=== PATIENT | female | born 1950 | race Caucasian/White ===

== ENCOUNTER 2018-10-29 20:52 | Emergency (ER) | payer MEDICARE, SELFPAY ==
[2018-10-29 20:54] VITALS: BP 160/97; PULSE 82; RESP 18; TEMP 36.1; O2SAT 97; BMI 39.4
[2018-10-29 21:39] LABS: Absolute Lymphocyte Count 0.62 X10^3/uL (0.83-4.51); Absolute Neutrophil Count 5.3 X10^3/uL (2.0-7.7); Basophil# 0.02 X10^3/uL; Basophil% 0.3 % (0-1); Eosinophil# 0.04 X10^3/uL; Eosinophils% 0.6 % (0-5); Hematocrit 40.7 % (37-47); Hemoglobin 13.4 g/dL (12.0-15.0); Lymphocyte # 0.62 X10^3/ul (4.0); Lymphocyte % 9.8 % (19-41); Mean Corp Hgb Conc 32.9 g/dL (32-36); Mean Corpuscular Hgb 29.2 pg (27.0-32.0); Mean Corpuscular Volume 88.7 fL (81-99); Mean Platelet Vol. 10.9 fl (6.2-12.0); Monocyte# 0.32 X10^3/uL; Monocyte% 5.1 % (0-10); NRBC Flagged by Analyzer 0 % (0-5); Platelet Count 189 K/mm3 (150-450); RBC Distribution Width CV 12.2 % (11.6-14.6); RBC Distribution Width SD 39.6 fl (35.1-43.9); Red Blood Count 4.59 M/mm3 (4.2-5.4); White Blood Count 6.3 K/mm3 (4.4-11.0)
[2018-10-29 21:50] LABS: Anion Gap 7 (5-15); BUN 12 mg/dL (7-18); BUN/Creat Ratio 13.6 RATIO (10-20); Calcium,Total 9.1 mg/dL (8.5-10.1); Chloride 109 mmol/L (98-107); Creatinine, Serum 0.88 mg/dL (0.55-1.02); EST Glomerular Filtration Rate 67 mL/min (>60); Est Glom Filt Rate - Afr Amer 81 mL/min (>60); Estimated Creatinine Clearance 51.37 ml/min; Glucose 117 mg/dL (74-106); Potassium 3.6 mmol/L (3.5-5.1); Sodium Level 140 mmol/L (136-145)
--- NOTE | 2018-10-29 22:16 | ED.DCSUM_ITS ---
- ER Visit Summary Date of Service: 10/29/18 Chief Complaint: Body stiffness History of Present Illness: The patient is a 68 F who presents with body stiffness. She states that this is been ongoing for 2 weeks. At times she has shaking all over, dry mouth and she feels like she cannot relax. The symptoms have started ever since she has not been taking fluvoxamine. She ran out about a month ago. She try to get into her doctor to get a refill but she has not been able to get an appointment. She has had similar symptoms to this in the past when she tried to stop herself from taking that medication. She denies any fevers or any other recent illnesses. Physical Examination: Vital signs reviewed. HEENT exam unremarkable. There is no nuchal rigidity. Heart is regular rate and rhythm without murmurs. Lungs are clear to auscultation. Abdomen is soft and nontender. Extremities reveal no edema. Skin exam normal. Neurologic exam normal. Test Results: Laboratory studies unremarkable except for chloride of 109, glucose 117. Urinalysis negative. Emergency Department Course and Treatment: The patient symptoms are likely due to her not having her medication for over a month. I will give her a dose of A tivan here to help with her symptoms. I will give her a medication refill of the fluvoxamine. She has an appointment in late November she will try to move this up. Treatment Plan: [] Disposition: Discharge Impression: Medication withdrawal This note was generated with [employer] dictation software. It may contain incorrect words, spelling, and punctuation that were not noted in review of the chart prior to signing ED Disposition - Plan for ED Patient: Referrals: Natanael Frank DO [Primary Care Provider] -
[2018-10-29 22:36] LABS: Bacteria 0 SEEN /hpf (None Seen); Mucous, Urine 0 SEEN /hpf (<or=2+); Red Blood Cells-Urine 0 SEEN /hpf (0-5)
[2018-10-29 22:38] LABS: Color, Urine Straw (Yellow); Glucose, Dipstick Normal (Normal); Ketone-Dipstick 5 mg/dl (Negative); Leukocyte Esterase-Dipstick 25 /ul (Negative); Nitrite-Dipstick Negative (Negative); Occult Blood-Urine Negative /ul (Negative); Protein-Dipstick Negative (Negative); Urine Bilirubin Dipstick Negative (Negative); Urine Clarity Clear (Clear); Urine Urobilinogen Normal (Normal)
[2018-10-29 22:44] LABS: Squamous Epithelial Cells - UA 0-5 SEEN /hpf (5-10); White Blood Cells 0-5 SEEN /hpf (0-5)
--- NOTE | 2018-10-29 23:00 | ED.DEP ---
ED Disposition - Plan for ED Patient: Disposition: Home or Assisted Living Instructions: Treating Anxiety Disorders with Medication Prescriptions: Fluvoxamine Maleate [Luvox] 100 mg PO QHS #60 tab Prescription Printed Referrals: Natanael Frank DO [Primary Care Provider] -
[2018-10-29] MEDS: LORazepam 1 MG Tablet PO (23:11)
[2018-10-29 23:13] VITALS: RESP 14
== END 2018-10-29 23:13 | disposition home or self-care (01) ==
PROVIDERS: Emergency Provider Emergency Medicine; Family Provider Family Medicine; PCP Family Medicine
DX: F19.939 Other psychoactive substance use, unspecified with withdrawal, unspecified (principal); F32.9 Major depressive disorder, single episode, unspecified
CPT/HCPCS: 80048; 81001; 85025; 99283

== ENCOUNTER 2018-10-31 17:53 | Emergency (ER) | payer MEDICARE, SELFPAY ==
[2018-10-31 17:54] VITALS: BP 167/106; PULSE 72; RESP 17; TEMP 35.8; O2SAT 96; BMI 36.5
--- NOTE | 2018-10-31 18:10 | ED.VIS.GEN ---
History of Present Illness Chief Complaint: Anxiety Informant: Patient, Family Onset: Days Current Severity: Mild Maximum Severity: Moderate Narrative: Patient presents with chief complaint of anxiety. She was seen in the ER 2 days ago with muscle stiffness that she attributed to being out of her Luvox. She states she is had the symptoms in the past when she was out of her medication. Work-up in the emergency room 2 days ago was unremarkable. She was given 1 mg of p.o. Ativan and symptoms improved within 30 minutes. She was given a prescription for her Luvox, but is only been able to take 1 or 2 doses. Patient states today her anxiety seemed to worsen again. She is an appointment with her PCP in 3 days. She denies headache. She denies chest pain or palpitations. Past Medical History - Allergies and Home Meds Allergies/Adverse Reactions: Allergies No Known Allergies Allergy (Verified 10/31/18 17:54) Primary Care Physician: Natanael Frank DO [Primary Care Provider] - Prior records reviewed: Yes Past Medical History: - - Reviewed Lives: Spouse/ Significant Other Smoking Status: Never smoker Review of Systems General: Denies: Chills, Fever Eyes: Denies: Visual changes - bilaterally ENT: Denies: Bilateral ear pain Cardiovascular: Denies: Chest pain, Palpitations Respiratory: Denies: Dyspnea, Cough Gastrointestinal: Denies: Abdominal pain, Nausea, Vomiting, Diarrhea Musculoskeletal: Denies: Extremity Pain Skin: Denies: Rash Neurological: Denies: Headache Psych: Reports: Anxiety Hematologic: Denies: Easy bruising, Easy bleeding Allergy: Denies: Uticaria Physical Exam Vital Signs/Narrative: Vital Signs Temp Pulse Resp BP Pulse Ox 10/31/18 17:54 96.5 F L 72 17 167/106 H 96 Inital Vital Signs reviewed: Yes General: Well nourished, Well developed Eyes: Perrl, EOMI ENT: Moist mucous membranes Neck: Supple Cardiovascular: Regular rate, Regular rhythm Respiratory: No distress, CTA bilaterally Abdomen: Soft, Nontender Extremities: Nontender Skin: Normal color, No rash Neurological: Alert, Oriented x3, Normal Strength, Normal Sensation Psychological: Normal affect Diagnostic/Tx/Re-eval - Medical Decision Making Patient was given 1 mg of Ativan p.o. After 40 minutes she states she is starting to feel improved. She be given a prescription for Ativan, 0.5 mg tabs. She will follow-up with her PCP in 3 days. She is given return instructions. ED Disposition - Plan for ED Patient: Disposition: Home or Assisted Living Diagnosis: Anxiety Instructions: Anxiety Reaction Prescriptions: Lorazepam [Ativan] 0.5 mg PO TID PRN #20 tablet PRN Reason: Anxiety Referrals: Natanael Frank DO [Primary Care Provider] - Keep [facility]iny appointment
[2018-10-31] MEDS: LORazepam 1 MG Tablet PO (18:18)
== END 2018-10-31 19:10 | disposition home or self-care (01) ==
PROVIDERS: Emergency Provider Emergency Medicine; Family Provider Family Medicine; PCP Family Medicine
DX: F41.9 Anxiety disorder, unspecified (principal); Z79.899 Other long term (current) drug therapy
CPT/HCPCS: 99283

== ENCOUNTER → 2019-08-10 15:03 | Outpatient (CLI) | payer MEDICARE, SELFPAY ==
[2019-08-10 14:47] VITALS: BMI 37.4
[2019-08-10 17:14] LABS: Anion Gap 7 (5-15); BUN 19 mg/dL (7-18); BUN/Creat Ratio 20.6 RATIO (10-20); Calcium,Total 9.3 mg/dL (8.5-10.1); Chloride 104 mmol/L (98-107); Creatinine, Serum 0.92 mg/dL (0.55-1.02); EST Glomerular Filtration Rate 64 mL/min (>60); Est Glom Filt Rate - Afr Amer 77 mL/min (>60); Glucose 93 mg/dL (74-106); Potassium 3.6 mmol/L (3.5-5.1); Sodium Level 140 mmol/L (136-145); Thyroid Stim Hormone (TSH) 1.46 uIU/mL (0.358-3.74)
== END ==
PROVIDERS: PCP Family Medicine; Referring Provider Family Medicine; Visit Provider Family Medicine
DX: I10 Essential (primary) hypertension (principal); F41.9 Anxiety disorder, unspecified
CPT/HCPCS: 36415; 80048; 84443

== ENCOUNTER → 2023-08-13 | Outpatient (CLI) | payer MEDICARE, SELFPAY ==
[2023-08-13 16:16] LABS: Anion Gap 8 (5-15); BUN 15 mg/dL (7-18); BUN/Creat Ratio 16.1 RATIO (10-20); Calcium,Total 9.3 mg/dL (8.5-10.1); Chloride 108 mmol/L (98-107); Creatinine, Serum 0.93 mg/dL (0.55-1.02); EST Glomerular Filtration Rate 62 mL/min (>60); Est Glom Filt Rate - Afr Amer 75 mL/min (>60); Glucose 92 mg/dL (74-106); Potassium 3.8 mmol/L (3.5-5.1); Sodium Level 141 mmol/L (136-145)
== END | disposition home or self-care (01) ==
LOC: BIMLAB 13:17
PROVIDERS: PCP Family Medicine; Referring Provider Family Medicine; Visit Provider Family Medicine
DX: I10 Essential (primary) hypertension (principal)
CPT/HCPCS: 36415; 80048

== ENCOUNTER → 2024-10-26 | Outpatient (CLI) | payer MEDICARE, SELFPAY ==
[2024-10-26 16:52] LABS: Hematocrit 40.0 % (37-47); Hemoglobin 13.2 g/dL (12.0-15.0); Immature Granulocytes Count 0.020 X10^3/uL (0.0-0.0); Mean Corp Hgb Conc 33.0 g/dL (32-36); Mean Corpuscular Volume 87.5 fL (81-99); Mean Platelet Vol. 11.1 fl (6.2-12.0); NRBC Flagged by Analyzer 0 % (0-5); Platelet Count 183 K/mm3 (150-450); RBC Distribution Width CV 12.8 % (11.6-14.6); RBC Distribution Width SD 40.9 fl (35.1-43.9); Red Blood Count 4.57 M/mm3 (4.2-5.4); White Blood Count 7.9 K/mm3 (4.4-11.0)
[2024-10-26 17:35] LABS: Anion Gap 13 (5-15); BUN 20 mg/dL (4-19); BUN/Creat Ratio 18.6 RATIO (10-20); Calcium,Total 9.7 mg/dL (7.6-11.0); Carbon Dioxide 22.8 mmol/L (21.0-32.0); Chloride 105 mmol/L (98-108); Glucose 97 mg/dL (70-99); Potassium 3.9 mmol/L (3.3-5.1)
--- OUTSIDE RECORDS SUMMARY | 2024-10-26 22:56 | XMS RPT_ITS | CCD ---
Author Organization [facility] CliniSyid Care Team Providers Care Logistics Associate Name Role Phone Natanael Frank Attending Unavailable Natanael Frank Referring Unavailable Natanael Frank Primary Care Unavailable Natanael Frank Attending Unavailable Natanael Frank Referring Unavailable Natanael Frank Primary Care Unavailable Natanael Frank Primary Care Unavailable Natanael Frank Attending Unavailable Natanael Frank Referring Unavailable Dr. Natnaael Frank DO Primary Care Provider Dr. Natanael Frank DO Attending Provider Dr. Natanael Frank DO Referring Provider Medications Current Medications Medication Drug Class(es) Dates Sig (Normalized) Sig (Original) fluvoxaMINE maleate 50 mg oral tablet (12 sources) Serotonin Reuptake Inhibitor Start: 11-03-2018 End: 09-20-2024 take 1 tablet by mouth at bedtime Fluvoxamine 50 mg tablet Active 50 mg PO AT BEDTIME 90 1 September 20, 2024 9:16am Start: 10-29-2018 End: 01-05-2019 take 1 tablet by mouth at bedtime Fluvoxamine 100 MG tablet Discontinued 100 mg PO AT BEDTIME October 29, 2018 12:00am January 05, 2019 4:10pm LORazepam 0.5 mg oral tablet (20 sources) Benzodiazepine Start: 10-31-2018 End: 10-26-2024 take 1 tablet by mouth three times daily as needed for anxiety Lorazepam 0.5 mg tablet Active 0.5 mg PO THREE TIMES A DAY as needed for Anxiety 30 0 October 26, 2024 2:51pm Completed/Discontinued Medications Medication Drug Class(es) Dates Sig (Normalized) Sig (Original) dicyclomine hydrochloride 20 mg oral tablet (1 source) Anticholinergic Start: 07-31-19 End: 02-07-20 take 1 tablet by mouth twice daily as needed Dicyclomine 20 mg tablet Discontinued 20 mg PO TWICE A DAY 20 July 30, 2022 12:00am February 06, 2023 4:03pm as needed for cramping hydroCHLOROthiazide 12.5 mg oral tablet (3 sources) Thiazide Diuretic Start: 01-13-20 19 End: 01-17-20 21 take 1 tablet by mouth once daily Hydrochlorothiazide 12.5 mg tablet Discontinued 12.5 mg PO DAILY 90 February 29, 2020 10:02am January 16, 2021 12:44pm lisinopril 10 mg oral tablet (2 sources) Angiotensin Converting Enzyme Inhibitor Start: 07-19-19 End: 02-07-20 23 take 1 tablet by mouth once daily Lisinopril 10 mg tablet Discontinued 10 mg PO DAILY January 17, 2022 3:16pm February 06, 2023 4:03pm Problems Problem Classification Problem Date Documented Da te Episodic/Chronic Anxiety disorders (8 sources) Mixed obsessional thoughts and acts; Translations: [Anxiety disorder, unspecified] Onset: 08-13-2023 11-03-2018 Chronic Biliary tract disease (1 source) Gallstone; Translations: [Calculus of gallbladder without cholecystitis without obstruction] 11-03-2018 Episodic Essential hypertension (3 sources) Essential (primary) hypertension; Translations: [Essential hypertension] Onset: 08-28-2023 07-30-2022 Chronic Comment on above: Blood pressure is ad equately controlled. Other gastrointestinal disorders (1 source) Irritable bowel syndrome; Translations: [Irritable bowel syndrome without diarrhea] 11-03-2018 Chronic Results Test Name Value Interpretation Reference Range [facility] Internal Medicine Office Vis daniel 03-10-2024 Internal Medicine Office Visit [facility] [address] [place] [address] [place], [place] [address] OFFICE VISIT Date of Service: 03/10/24 MR#: [id number] Acct: [id number] Name: FREDIS RUBY MICHAEL Rep #: [id number] : 1950 Provider: Dr. Natanael butts, DO Age/Sex: 73/F Location[place] [facility] Status: Signed Intake Vital Signs 08/13/23 12:53 03/10/24 15:04 Height 5 ft 9 in 5 ft 9 in Weight: 228 lb 223 lb 2 oz BMI 33.6 32.9 BP 142/78 H 120/78 Blood Pressure Location Lt brachial Lt brachial Position Sitting Sitting Respiration 16 14 Pulse 76 82 Pulse Source Monitor Monitor Temp 97.2 F L 96.5 F L Temp Source Temporal Temporal Pulse Oximetry (%) 97 96 Oxygen Delivery Method room air room air Intake Visit Reasons: 6 M FU Chief Complaint: 6 M FU Director Of Instructional Technology Required: No Accompanied by: Self Is patient in pain?: No Allergies No Known Allergies Allergy (Verified 03/10/24 15:00) Medications ???Medication ???Instructions ???Recorded ???Confirmed ???Type lorazepam 0.5 mg tablet 0.5 mg PO TID PRN Anxiety #30 tabs 02/17/24 03/10/24 Rx fluvoxamine 50 mg tablet 50 mg PO QHS #90 TABLETS 03/10/24 03/10/24 Rx lorazepam 0.5 mg tablet 0.5 mg PO TID PRN Anxiety #30 tabs 03/10/24 03/10/24 Rx Have you fallen in the past year?: No PFSH Medical History Anxiety IBS (irritable bowel syndrome) Gallstones Surgical History History of tubal ligation History of cholecystectomy Family History Mother Blood clot in vein Sister Diabetes Depression Social History Smoking Status: Never smoker alcohol intake: never substance use type: does not use what type of physical activity do you participate in: none HPI HPI Chief Complaint: 6 M FU Details: FREDIS RUBY, is a 73 F who presents to the office today for follow-up visit to be in compliance with the controlled substance she takes. She is gradually weaned herself down from the Ativan dosage of 3 times a day and now takes it about once a day although occasionally she takes it twice a day. She lives a very solitary existence and is not very active but in general has been doing well as her OCD is controlled on her medication. ROS Const Constitutional: No body ache, excessive sweating, fatigue, fever(s), frequent falls, headache(s), snoring, weakness, weight change, sleep problems or change in appetite Eyes Eyes: No blurry vision, change in vision, eye pain or Light sensitivity ENT ENT: No abnormal hearing, ear or mastoid pain, tinnitus, nasal congestion, headache(s), neck pain or sore throat Resp Respiratory: No cough, shortness of breath, snoring or wheezing Cardio Cardiology: No chest pain at rest, chest pain with exertion, excessive sweating, shortness of breath, dyspnea on exertion, lightheadedness, orthopnea or palpitations Gastro GI: No abdominal pain, change in bowel habits, constipation, cramping, diarrhea, nausea/dyspepsia or vomiting Genitourinary-Female: No burning urination, painful urination, urinary incontinence, urinary frequency, blood in urine, abnormal periods or pelvic pain Musc Musculoskeletal: No abnormal gait, joint pain, back pain, limited range of motion, neck pain, numbness, stiffness, tingling or Arthritis Skin Skin: No dry skin, redness, lesions, itchy eyes, rash or wounds Neuro Neurology: No abnormal gait, abnormal hearing, abnormal speech, dizziness, weakness, frequent falls, headache(s), memory loss, numbness or tingling Psych Psychiatric: No anxiety, No change in appetite, No depression, No memory loss and No Thoughts of harming yourself/Others Endo Endocrine: No cold intolerance, excessive sweating, fatigue, flushing, heat intolerance, increased thirst/drinking, increased hunger or weight change Aller/Imm Allergy/Immunologic: No itchy eyes, seasonal allergy symptoms, hives or wheezing Italo/Lymp Hematologic/Lymphatic: No easy bleeding, easy bruising or enlarged lymph nodes Exam Const General: cooperative and healthy appearing Nutritional Appearance: overweight Orientation: oriented x3 [facility] Head: normal to inspection Ears: hearing grossly normal bilaterally Nose: external nose normal Eyes General: appearance normal, both eyes and all related structures Resp Effort Inspection: normal respiratory effort Auscultation: Bilateral: Clear to Auscultation Cardio Rate: regular rate Rhythm: regular rhythm GI Palpation: soft Musc Musculoskeletal: No joint tenderness Skin General: no rashes or lesions noted Neuro General: patient oriented x3 Cranial Nerves: CN's II-XI intact bilaterally Cognition: normal cognition Speech: speech n (more content not included)... Normal [facility] Basic Metabolic Profile (BMP )on 08-13-2023 BUN/CRE 16.1 RATIO Normal 10-20 [facility] Comment on above: Performed By: #### L 500.2500 #### [facility] [address] [place], [address] CA,Total 9.3 mg/dL Normal 8.5-10.1 [facility] Comment on above: Performed By: #### L 500.2500 #### [facility] [address] [place], [address] Chloride [Moles/Vol] 108 mmol/L High 98-107 [facility] Comment on above: Performed By: #### L 500.2500 #### [facility] [address] [place], [address] CO2 [Moles/Vol] 25.0 mmol/L Normal 21.0-32.0 [facility] Comment on above: Performed By: #### L 500.2500 #### [facility] [address] [place], [address] Creatinine [Mass/Vol] 0.93 mg/dL Normal 0.55-1.02 [facility] Comment on above: Result Comment: The validity of the calculated GFR GFRAA in patients over 70 years has not been determined. Clinical correlation is essential. Performed By: #### L 500.2500 #### [facility] [address] [place], [address] EST GFR - AA 75 mL/min Normal >60 [facility] Comment on above: Result Comment: Afri can Hungarian GFR Calc Performed By: #### L 500.2500 #### [facility] [address] [place], [address] GAP 8 Normal 5-15 [facility] Comment on above: Performed By: #### L 500.2500 #### [facility] [address] [place], [address] GFR/1.73 sq M.predicted among non-blacks MDRD (S/P/Bld) [Vol rate/Area] 62 mL/min/{1.73_m2} Normal >60 [facility] Comment on above: Result Comment: Non- GFR Calc Performed By: #### L 500.2500 #### [facility] [address] [place], [address] Glucose [Mass/Vol] 92 mg/dL Normal 74-106 [facility] Comment on above: Performed By: #### L 500.2500 #### [facility] [address] [place], [address] Potassium [Moles/Vol] 3.8 mmol/L Normal 3.5-5.1 [facility] Comment on above: Performed By: #### L 500.2500 #### [facility] [address] [place], [address] Sodium [Moles/Vol] 141 mmol/L Normal 136-145 [facility] Comment on above: Performed By: #### L 500.2500 #### [facility] [address] [place], [address] Urea nitrogen [Mass/Vol] 15 mg/dL Normal 7-18 [facility] Comment on above: Performed By: #### L 500.2500 #### [facility] [address] [place], [address] Internal Medicine Office Vis itokd 08-13-2023 Internal Medicine Office Visit [facility] [address] [place] [address] [place] [address] OFFICE VISIT Date of Service: 08/13/23 MR#: [id number] Acct: [id number] Name: FREDIS RUBY MICHAEL Rep #: [id number] : 1950 Provider: Dr. Natanael butts, DO Age/Sex: 72/F Location[place] [facility] Status: Signed Intake Vital Signs 02/06/23 15:04 08/13/23 12:53 Height 5 ft 9 in 5 ft 9 in Weight: 227 lb 2 oz 228 lb BMI 33.5 33.6 BP 140/70 H 142/78 H Blood Pressure Location Lt brachial Lt brachial Position Sitting Sitting Respiration 16 16 Pulse 83 76 Pulse Source Monitor Monitor Temp 97.1 F L 97.2 F L Temp Source Temporal Temporal Pulse Oximetry (%) 97 Oxygen Delivery Method room air room air Intake Visit Reasons: 6 M FU Chief Complaint: 6 M FU Director Of Instructional Technology Required: No Is patient in pain?: No Allergies No Known Allergies Allergy (Verified 08/13/23 12:47) Medications ???Medication ???Instructions ???Recorded ???Confirmed ???Type fluvoxamine 50 mg tablet 50 mg PO QHS #90 tabs 05/22/23 08/13/23 Rx lorazepam 0.5 mg tablet 0.5 mg PO TID PRN Anxiety #30 tabs 08/13/23 08/13/23 Rx Have you fallen in the past year?: No Nurse's Note: needs refill on lorazepam PFSH Medical History Anxiety IBS (irritable bowel syndrome) Gallstones Surgical History History of tubal ligation History of cholecystectomy Family History Mother Blood clot in vein Sister Diabetes Depression Social History Smoking Status: Never smoker alcohol intake: never substance use type: does not use what type of physical activity do you participate in: none HPI HPI Chief Complaint: 6 M FU Details: FREDIS RUBY, is a 72 F who presents to the office today for a routine check up. She lives a very sedate life, and has no complaints. ROS Const Constitutional: No body ache, chills, excessive sweating, fatigue, fever(s), frequent falls, headache(s), snoring, weakness, sleep problems or change in appetite Eyes Eyes: No blurry vision, change in vision, eye pain or Light sensitivity ENT ENT: No abnormal hearing, ear or mastoid pain, tinnitus, nasal congestion, headache(s), neck pain or sore throat Resp Respiratory: No cough, shortness of breath, snoring or wheezing Cardio Cardiology: No chest pain at rest, chest pain with exertion, excessive sweating, shortness of breath, dyspnea on exertion, lightheadedness, orthopnea or palpitations Gastro GI: No abdominal pain, change in bowel habits, constipation, cramping, diarrhea, nausea/dyspepsia or vomiting Genitourinary-Female: No burning urination, painful urination, urinary incontinence, urinary frequency, abnormal vaginal bleeding or pelvic pain Musc Musculoskeletal: No abnormal gait, joint pain, back pain, limited range of motion, neck pain or numbness Skin Skin: No dry skin, redness, lesions, itchy eyes, rash or wounds Neuro Neurology: No abnormal gait, abnormal hearing, weakness, frequent falls, headache(s), memory loss or numbness Psych Psychiatric: No anxiety, No change in appetite, No depression, No memory loss and No Thoughts of harming yourself/Others Endo Endocrine: No cold intolerance, excessive sweating, fatigue, flushing, heat intolerance, increased thirst/drinking or increased hunger Aller/Imm Allergy/Immunologic: No itchy eyes, seasonal allergy symptoms, hives or wheezing Italo/Lymp Hematologic/Lymphatic: No easy bleeding, easy bruising, enlarged lymph nodes or other Exam Const General: cooperative and healthy appearing Nutritional Appearance: overweight Orientation: oriented x3 [facility] Head: normal to inspection Ears: hearing grossly normal bilaterally Nose: external nose normal Eyes General: appearance normal, both eyes and all related structures Resp Effort Inspection: normal respiratory effort Auscultation: Bilateral: Clear to Auscultation Cardio Rate: regular rate Rhythm: regular rhythm GI Palpation: soft Musc Musculoskeletal: No joint tenderness Skin General: no rashes or lesions noted Neuro General: patient oriented x3 Cranial Nerves: CN's II-XI intact bilaterally Cognition: normal cognition Speech: speech normal Gait: normal gait Extrem General: no clubbing, cyanosis or edema Psych Appearance: grossly normal Mental Status: mental status grossly normal Mood: congruent mood Attitude: cooperative Thought Process: normal Judgment: judgment good Coding Level of Care Code Off vis,est,level 3 Diagnoses Essential hypertension I10 Mixed obsessional thoughts and acts F42.2 Obsessive-compulsive (more content not included)... Normal [facility] Vital Signs Date Time Vital Sign Value Performing Clinician Faci lity 10-26-2024 14:38-0400 Body height 175.[address] Natanael Frank DO Work Phone: [facility] 10-26-2024 14:38-0400 Body mass index (BMI) [Ratio] 32.1 kg/m2 Dr. Natanael Frank DO Work Phone: [facility] 10-26-2024 14:38-0400 Body temperature 97.6 [degF] Dr. Natanael Frank DO Work Phone: [facility] 10-26-2024 14:38-0400 Body weight 98.[address] Natanael Frank DO Work Phone: [facility] 10-26-2024 14:38-0400 Diastolic blood pressure 78 mm[Hg] Dr. Natanael Frank DO Work Phone: [facility] 10-26-2024 14:38-0400 Heart rate 93 /min Dr. Natanael Frank DO Work Phone: [facility] 10-26-2024 14:38-0400 Respiratory rate 16 /min Dr. Natanael Frank DO Work Phone: [facility] 10-26-2024 14:38-0400 SaO2% (BldA) [Mass fraction] 95 % Dr. Natanael Frank DO Work Phone: [facility] 10-26-2024 14:38-0400 Systolic blood pressure 158 mm[Hg] Dr. Natanael Frank DO Work Phone: [facility] Encounters Encounter Date Encounter Type Care Provider Facility Start: 10-26-2024 End: 10-26-[address] Natanael Frank DO Work Phone: -[facility] Start: 10-26-2024 End: 10-26-[address] Natanael Lai DO -[facility] Work Phone: Start: 03-10-2024 End: 03-10-2024 ambulatory Natanael Frank Facility:[facility] Start: 08-13-2023 End: 08-13-2023 ambulatory Natanael Frank Facility:[facility] Start: 08-13-2023 End: 08-13-2023 ambulatory Natanael Frank Facility:[facility] Plan of Treatment Date Care Activity Detail Author Start: 10-26-2024 Basic metabolic 2008 panel with ionized calcium - Serum or Plasma [facility] Start: 10-26-2024 CBC W Auto Different ial panel - Blood [facility] Start: 10-26-2024 Thyroid stimulating hormone measurement [facility] Anion gap in Serum or Plasma [facility] BUN/Creatinine ratio [facility] Calcium [Mass/volume ] in Serum or Plasma [facility] Carbon dioxide, tota l [Moles/volume] in Central venous blood [facility] Creatinine [Mass/vol ume] in Serum or Plasma [facility] Erythrocyte mean cor puscular volume determination [facility] Glucose [Mass/volume ] in Serum or Plasma [facility] Hematocrit [Volume F raction] of Blood [facility] Hemoglobin [Mass/volume] in Blood [facility] Leukocytes [#/volume] in Blood [facility] Mean corpuscular hem oglobin concentration determination [facility] Mean corpuscular hem oglobin determination [facility] Measurement of renal function [facility] Neutrophil count [facility] Neutrophil percent d ifferential count [facility] Platelets [#/volume] in Blood [facility] Potassium measurement [facility] Red blood cell count [facility] Red cell distributio n width determination [facility] Serum chloride measurement [facility] Sodium measurement [facility] Urea nitrogen [Mass/ volume] in Serum or Plasma [facility] Payers Date Payer Category Payer Self-pay 2023 Medicare [id number] Self-pay [phone] Unknown [id number] Unknown [id number] Unknown [id number] Social History Date Type Detail Facility Start: 02-06-2023 Tobacco smoking stat [facility] Never smoked tobacco (finding) [facility] Start: 10-31-2018 Lives [facility] Start: 1950 Sex Assigned At Female [facility] Progress note 10-26-2024 Note Date & Type Note Facility 10-26-2024 Progress note [facility] Progress note 10-26-2024 Note Date & Type Note Facility 10-26-2024 Progress note Note Date/Time October 26, 2024 3:06pm [facility] [address] [place] [address] OFFICE VISIT Date of Service: 10/26/24 MR#: [id number] Acct: [id number] Name: FREDIS RUBY Rep #: [id number] : 1950 Provider: Dr. Julian Frank, Age/Sex: 74/F Location: [facility] Status: Signed Intake Vital Signs 03/10/24 15:04 10/26/24 14:38 Height 5 ft 9 in 5 ft 9 in Weight: 223 lb 2 oz 218 lb BMI 32.9 32.1 BP 120/78 158/78 H Blood Pressure Location Lt brachial Lt brachial Position Sitting Sitting Respiration 14 16 Pulse 82 93 Pulse Source Monitor Monitor Temp 96.5 F L 97.6 F L Temp Source Temporal Temporal Pulse Oximetry (%) 96 95 Oxygen Delivery Method room air room air Intake Visit Reasons: 6 M FU Chief Complaint: 6 M FU Director Of Instructional Technology Required: No Accompanied by: Self Is patient in pain?: No Allergies No Known Allergies Allergy (Verified 10/26/24 14:32) Medications ?Medication ?Instructions ?Recorded ?Confirmed ?Type fluvoxamine 50 mg tablet 50 mg PO QHS #90 TABLETS 01/0410/26/24 Rx lorazepam 0.5 mg tablet 0.5 mg PO TID PRN Anxiety #3 0 tabs 10/26/24 10/26/24 Rx Have you fallen in the past year?: No Nurse's Note: pt states she has stopped using the lorazepam as often as she was, typically a few times a week at this time [facility] Medical History Anxiety IBS (irritable bowel syndrome) Gallstones Surgical History History of tubal ligation History of cholecystectomy Family History Mother Blood clot in vein Sister Diabetes Depression Social History Smoking Status: Never smoker alcohol intake: never substance use type: does not use what type of physical activity do you participate in: none HPI HPI Chief Complaint: 6 M FU Details: FREDIS RUBY, is a 74 F who presents to the office today for 6-month follow-up and renewal on her lorazepam which she is taking very infrequently. She feels more tired than usual and just does not have the energy of the strength to do things. Her appetite is good but she has lost a few pounds and attributes that to being more active in the summer. Because of her obsessive-compulsive disorder she is constantly washing her hands and she has noticed that her hands and forearms are quite red and knows that is because she does that even though she is taking medicine for her OCD. ROS Const Constitutional: No body ache, excessive sweating, fatigue, fever(s), frequent falls, headache(s), snoring, weakness, weight change, sleep problems or change in appetite Eyes Eyes: No blurry vision, change in vision, eye pain or Light sensitivity ENT ENT: No abnormal hearing, ear or mastoid pain, tinnitus, nasal congestion, headache(s), neck pain or sore throat Resp Respiratory: No cough, shortness of breath, snoring or wheezing Cardio Cardiology: No chest pain at rest, chest pain with exertion, excessive sweating,shortness of breath, dyspnea on exertion, lightheadedness, orthopnea or palpitations Gastro GI: No abdominal pain, change in bowel habits, constipation, cramping, diarrhea,nausea/dyspepsia or vomiting Genitourinary-Female: No burning urination, painful urination, urinary incontinence, urinary frequency, blood in urine, abnormal periods or pelvic pain Musc Musculoskeletal: No abnormal gait, joint pain, back pain, limited range of motion, neck pain, numbness, stiffness, tingling or Arthritis Skin Skin: No dry skin, redness, lesions, itchy eyes, rash or wounds Neuro Neurology: No abnormal gait, abnormal hearing, abnormal speech, dizziness, weakness, frequent falls, headache(s), memory loss, numbness or tingling Psych Psychiatric: No anxiety, No change in appetite, No depression, No memory loss and No Thoughts of harming yourself/Others Endo Endocrine: No cold intolerance, excessive sweating, fatigue, flushing, heat intolerance, increased thirst/drinking, increased hunger or weight change Aller/Imm Allergy/Immunologic: No itchy eyes, seasonal allergy symptoms, hives or wheezing Italo/Lymp Hematologic/Lymphatic: No easy bleeding, easy bruising or enlarged lymph nodes Exam Const General: cooperative and healthy appearing Nutritional Appearance: overweight Orientation: oriented x3 [facility] Head: normal to inspection Ears: hearing grossly normal bilaterally Nose: external nose normal Teeth and gingiva: poor dentition Eyes General: appearance normal, both eyes and all related structures Neck Neck: normal visual inspection and full ROM Resp Effort & Inspection: normal respiratory effort Auscultation: Bilateral: Clear to Auscultation Cardio Rate: regular rate Rhythm: regular rhythm GI Palpation: soft Musc Musculoskeletal: No joint tenderness Skin General: no rashes or lesions noted and erythema (Both hands are very erythematous.) Neuro General: patient oriented x3 Cranial Nerves: CN's II-XI intact bilaterally Cognition: normal cognition Speech: speech normal Gait: normal gait Extrem General: no clubbing, cyanosis or edema Psych Appearance: grossly normal Mental Status: mental status grossly normal Mood: congruent mood Attitude: cooperative Thought Process: normal Judgment: judgment good Coding Level of Care Code Off vis,est,level 3 Diagnoses Essential hypertension I10 Mixed obsessional thoughts and acts F42.2 Obsessive-compulsive disorder type: mixed obsessional thoughts and acts Anxiety F41.9 Assessment and Plan Assessment and Plan (1) Essential hypertension: Status: Acute Comment: Blood pressure is adequately controlled. Plan: I rechecked her blood pressure after the nurse who checked and her systolic was down to 130 and her diastolic was 76. (2) Obsessive compulsive disorder: Status: Acute Qualifiers: Obsessive-compulsive disorder type: mixed obsessional thoughts and acts Qualified Code(s): F42.2 - Mixed obsessional thoughts and acts Plan: She is taking her fluvoxamine regularly for her OCD. (3) Anxiety: Status: Chronic Plan: She averages 1 or 2 lorazepam a week and mainly takes it so she gets a solid night sleep. She is unsure why she feels so fatigued and tired but I have ordered some baseline blood work to see if there is anything causing the symptoms. Orders: Orders Thyroid Stim Hormone (TSH) Today I10 - Essential (primary) hypertension CBC W/Diff, Automated Today I10 - Essential (primary) hypertension Basic Metabolic Profile (BMP) Today I10 - Essential (primary) hypertension Medications: Refilled lorazepam 0.5 mg PO TID PRN 30 tabs 0RF Anxiety Plan Details Follow Up: 6 Months Clinical Quality Measures Falls Risk Screening/Assistive Devices Have you fallen in the past year?: No 10/26/24 1506 <Electronically signed by Natanael castaneda DO> Date _ Natanael Frank DO Cosigner Signature: Date (if applicable) CC: ~ [facility] Work Phone: Evaluation note Note Date & Type Note Facility Evaluation note Diagnosis Onset Date Resolution Essential hypertension acute Se ptember 2024 2:20pm Obsessive compulsive disorder acute October 26, 2024 2:20pm Anxiety chronic October 2:20pm [facility] Work Phone: Reason for referral (narrative) Note Date & Type Note Facility Reason for referral (narrative) No reason for referral information available [facility] Work Phone: Summary Purpose Family History Relationship Condition Age at Onset Recorded Date/T maria m mother Venous thrombosis Unknown sister Diabetes mellitus Unknown Depression Unknown Advance Directives No Advanced Directives Records Found Chief Complaint and Reason for Visit Chief Complaint Admit Date 6 M FU October 26, 2024 2:20pm Reason for Visit Admit Date Essential hypertension October 26, 2 025 2:20pm Obsessive compulsive disorder October 26, 2024 2:20pm Anxiety October 26, 2024 2:20pm Additional Source Comments INFORMATION SOURCE (unrecogn ized section and content) DATE CREATED AUTHOR 03/12/2024 [facility] Care Teams (unrecognized sec tion and content) Team Status: Active Member Role/Relationship Status Dates Dr. Natanael Frank DO Family Provider Active Dr. Natanael Frank DO Primary Care Provider Active Team Status: Inactive Member Role/Relationship Status Dates Dr. Natanael Frank DO Primary Care Provider Active Start: October 26, 2024 End: October 26, 2024 Dr. Natanael Frank DO Attending Provider Active Start: October 26, 2024 End: October 26, 2024 Dr. Natanael Frank DO Referring Provider Active Start: October 26, 2024 End: October 26, 2024 Team Status: Active Member Role/Relationship Status Dates Dr. Natanael Frank DO Primary Care Provider Active Start: October 26, 2024 Dr. Natanael Frank DO Attending Provider Active Start: October 26, 2024 Dr. Natanael Frank DO Referring Provider Active Start: October 26, 2024 Goals (unrecognized section and content) Goals may be documented in a n alternate section FOR RECORDS PERTAINING TO PATIENTS WHO ARE OR HAVE BEEN ENROLLED IN A CHEMICAL DEPENDENCY/SUBSTANCEABUSE PROGRAM, SOME INFORMATION MAY BE OMITTED. This clinical summary was aggregated from multiple sources. Caution should be exercised in using it in the provision of clinical care. This summary normalizes information from multiple sources, and as a consequence, information in this document may materially change the coding, format and clinical context of patient data. In addition, data may be omitted in some cases. CLINICAL DECISIONS SHOULD BE BASED ON THE PRIMARY CLINICAL RECORDS. [employer] provides no warranty or guarantee of the accuracy or completeness of information in this document.
== END | disposition home or self-care (01) ==
LOC: BIMLAB 15:01
PROVIDERS: PCP Family Medicine; Referring Provider Family Medicine; Visit Provider Family Medicine
DX: I10 Essential (primary) hypertension (principal)
CPT/HCPCS: 36415; 80048; 84443; 85025